=== PATIENT | male | born 2000 | race Caucasian/White ===

== ENCOUNTER 2020-09-07 14:04 | Emergency (ER) | payer BC, SELFPAY ==
--- NOTE | ~2020-09-07 | XR_ITS ---
EXAMINATION: XR ankle RT min 3V, XR foot RT min 3V EXAM DATE: 09/07/2020 14:59 INDICATION: Bilateral foot, ankle pain, fractures. TECHNIQUE: Right foot dorsoplantar, lateral and oblique projections obtained and reviewed. Right ank le frontal, lateral and oblique projections obtained and reviewed. There is no prior study for starr drake. FINDINGS: Right metatarsal bones unremarkable. The right ankle mortise appears intact. Unusual ca lcaneal cuboid articulation seen on the oblique foot examination, possible congenital cartilaginous c oalition, or could be sequela from prior injury. This finding has been indicated, marked on the exami nation for review, clinical correlation. There are no acute fractures or dislocations identified. Th ere is no subcutaneous gas. The soft tissue is unremarkable. There are no radiopaque foreign lucy s. 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 Reviewed, dictated and finalized at location A. 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
--- NOTE | ~2020-09-07 | XR_ITS ---
EXAMINATION: XR ankle LT min 3V, XR foot LT min 3V EXAM DATE: 09/07/2020 14:59 (accession [id number]), 09/07/2020 14:58 (accession [id number]) INDICATION: History of fractures to feet and ankles. Medial malleolar pain without recent known injur y. TECHNIQUE: Left foot dorsoplantar, lateral and oblique projections obtained and reviewed. Left ankle frontal, lateral and oblique projections obtained and reviewed. There is no prior study for compari son. FINDINGS: Left metatarsal bones unremarkable. The left ankle mortise appears intact. There are no acute fractures or dislocations identified. There is no subcutaneous gas. The soft tissue is unrem arkable. There are no radiopaque foreign bodies. IMPRESSION: Unremarkable left foot, ankle examination. Reviewed, dictated and finalized at location A. [employer] IMPRESSION: Unremarkable left foot, ankle examination.
[2020-09-07 14:31] VITALS: BP 156/87; PULSE 73; RESP 20; TEMP 36.6; O2SAT 100
--- NOTE | 2020-09-07 14:37 | ED.GENADULT ---
HPI - General Adult General Chief complaint: Extremity Problem,Nontraumatic Stated complaint: Ankle/Feet Pain Time Seen by Provider: 09/07/20 14:37 Source: patient Mode of arrival: ambulatory Limitations: no limitations History of Present Illness HPI narrative: 19-year-old male patient presents to the [facility] with complaints of bilateral feet pain. Patient states these have been bothering him for about 2 weeks now. Patient states he has fractured his left ankle in the past and his right foot in the past. 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 Patient states he does wear steel toe boots but does have inserts in them but continues to complain of the pain. Patient states that they have been swelling as well and the swelling has been going up to the middle of his lower leg on both legs. Denies any trauma to the feet or ankles that he is aware of. Patient states he has been taking Tylenol and he states 15 to 17 pills a day. Related Data Allergies Allergy/AdvReac Type Severity Reaction Status Date / Time No Known Allergies Allergy Verified 09/07/20 14:32 Review of Systems Review of Systems: Narrative: CONSTITUTIONAL: Denies fever, chills, or sweats. EYES: Denies visual changes, redness, or discharge. ENT: Denies rhinorrhea, congestion, sore throat, or otalgia. CARDIOVASCULAR: Denies chest pain, palpitations, or edema. RESPIRATORY: Denies cough or dyspnea. GASTROINTESTINAL: Denies abdominal pain, nausea, vomiting, or diarrhea. GENITOURINARY: Denies dysuria or hematuria. SKIN: Denies rash or itching. MUSCULOSKELETAL: Denies back pain, joint pain, or myalgia. Positive bilateral feet pain x2 weeks NEUROLOGIC: Denies headache, numbness, or weakness. PSYCHIATRIC: Denies anxiety or depression. [facility] Past Medical History Medical History (Updated 09/07/20 @ 15:12 by MACK De Los Santos) Ankle fracture, left Foot fracture, right Comments At the time of my signature I agree with nursing past medical history, surgical, social, and family history. There is no relevant family history pertinent to the presenting complaint. Exam Narrative: Exam Narrative: GENERAL: Well-appearing, well-nourished, and in no acute distress. HEAD: Normocephalic, atraumatic. EYES: PERRLA and EOMI. ENT: Nares clear, no rhinorrhea or epistaxis. Mucous membranes moist. NECK: Supple. No lymphadenopathy CHEST: Clear to auscultation. No respiratory distress. HEART: Regular rate and rhythm. No murmur heard. Normal peripheral pulses. ABDOMEN: Soft, nontender, nondistended, normal active bowel sounds. EXTREMITIES: Patient able to bear weight and ambulate but has increased pain to both feet. No obvious surface trauma, ecchymosis, erythema, lesions, ulcers or break in skin integrity. Patient does have some swelling noted to the bilateral medial malleolus area into the inner aspect of the arch on bilateral feet. There is some 1-2+ pitting edema that extends up to the middle of the bilateral lower legs. The R and L foot is with/without obvious asymmetry or deformity when compared to the R and L foot. No bony step-off, tender to palpation over the bilateral inner aspects of the arch and the medial malleolus area. No pain to the hindfoot or sole. Normal plantar/dorsiflexion, inversion/eversion. Distal motor and neurovascular status are intact SKIN: Warm, dry, no rash. NEURO: No focal deficits. Alert and oriented x3. Course Reevaluation(s) Reevaluation #1: Reevaluated patient after his x-rays had resulted. Notified him that there is no acute fractures or hairline fractures noted in his x-rays at this time. Discussed with patient I do believe he most likely has some plantar fasciitis and the swelling is causing a lot of the pain. Discussed with patient we will send him home with some plantar fasciitis exercises to do as well as some naproxen to help with the pain. I highly recomm
[2020-09-07 14:50] VITALS: BP 156/87; PULSE 73; RESP 20; TEMP 36.6; O2SAT 100
== END 2020-09-07 15:30 | disposition home or self-care (01) ==
PROVIDERS: Emergency Provider Nurse Practitioner Family
DX: M72.2 Plantar fascial fibromatosis (principal)
CPT/HCPCS: 73610; 73630; 99214; G0463